=== PATIENT | female | born 1985 | race African-American/Black ===

== ENCOUNTER → 2024-02-04 | Outpatient (REF) | LOC: M EMP 08:00 | PROVIDERS: ATTEND Family Medicine | DX: Z11.52 Encounter for screening for COVID-19 (principal) ==

== ENCOUNTER 2024-03-13 08:15 | Emergency (ER) | payer OTHER ==
[~2024-03-13] VITALS: Ht 160 cm; Wt 78.4 kg
[2024-03-13] MEDS ORDERED: IBUP-1422 PO (08:28)
[2024-03-13] MEDS: ACETAMINOPHEN TAB 650MG DOSE (2X325MG) PO ONE (10:54)
[2024-03-13] MEDS: LIDOCAINE 5% (LIDODERM) PATCH TD ONE (11:35)
[2024-03-13] MEDS: KETOROLAC 30 MG/ML 1ML VIAL IM ONE (11:35)
[2024-03-13] MEDS ORDERED: METH-1164 PO (11:43)
[2024-03-13] MEDS ORDERED: NAPR-837 PO (11:43)
[2024-03-13] MEDS ORDERED: LIDO5DIS41 TD (11:43)
[2024-03-13 12:02] VITALS: BP 169/91; TEMP 97.5; O2SAT 98
== END 2024-03-13 12:00 | disposition home or self-care (01) ==
LOC: M ED 08:15
DX: M62.830 Muscle spasm of back (principal)
CPT/HCPCS: 93005; 96372; 99284; J1885